=== PATIENT | female | born 1955 | race Caucasian/White ===

== ENCOUNTER → 2017-06-13 | Day surgery (SDC) | payer OTHER ==
[~2017-06-13] MED LIST: LIDOCAINE 2% INJ (20 MG/ML) 20 ML MDV ONE
--- NOTE | 2017-06-14 12:47 | OPERATIVE REPORT E ---
Operative Report NAME: TOMY BAH : 1955 AGE: 61Y DATE OF SURGERY: 06/13/2017 ROOM: PREOPERATIVE DIAGNOSIS: ASYMMETRIC NODULAR DENSITY 10 O'CLOCK POSITION, RIGHT BREAST. POSTOPERATIVE DIAGNOSIS: ASYMMETRIC NODULAR DENSITY 10 O'CLOCK POSITION, RIGHT BREAST. PROCEDURES: 1. Stereotactically-directed incision mammotomy, right breast. 2. Interpretation of intraoperative mammography. 3. Placement of clip marker, right breast; 10 o'clock position. SURGEON: JASSI MAST M.D. ANESTHESIA: Local anesthetic. COMPLICATIONS: None. ESTIMATED BLOOD LOSS: Scant. DRAINS: None. TISSUE REMOVED: Multiple cores, right breast. COMPLICATIONS: None. FINDINGS: See below. SUMMARY OF PROCEDURE: Patient brought from the holding area to the mammography suite where the patient was placed in the prone position, right breast into compression. Compression of the target density in the superficial aspect at 10 o'clock position, right breast, was localized. The skin was prepped with Betadine, anesthetized with 1% lidocaine with epinephrine. Surgical plan and surgical time out were reviewed. The mammotomy is made with a #11 blade, a Mammotome advanced to the appropriate depth. Pre- and post fire films showed good alignment between the Mammotome and the target tissue. We now completed core biopsies x12 of the density. A clip marker was placed into the cavity. Post-biopsy images showed adequate evacuation of the density. There were no microcalcifications, therefore a specimen radiograph was not obtained. Mammotome was removed. Compression dressing applied. Patient tolerated the procedure well. DICTATING PHYSICIAN: JASSI MAST M.D. [id number] PHY#: [id number] ID: [id number] JOB#: [id number] ACCT: [id number] cc:JASSI MAST M.D. > MTDFlaco
--- NOTE | 2017-06-19 12:07 | RADIOLOGY REPORT (SQ) ---
EXAM DESCRIPTION: STEREO BREAST BX; RIGHT DIG DX MAMMO NO CHG COMPLETED DATE/TIME: 06/13/2017 2:12 pm; 06/13/2017 3:02 pm REASON FOR STUDY: UNSPEC BREAST LUMP (N63); POST RT BREAST STEREO N63 UNSPECIFIED LUMP IN BREAST COMPARISON: No recent films for comparison LIMITATIONS: None. PROCEDURE: Vacuum-assisted stereotactic-guided biopsy of the lesion in the right breast performed by Dr. Patel who also targeted the lesion. Using stereotactic guidance, a vacuum-assisted core biopsy of the targeted lesion was performed. A p ellet clip was deployed at the biopsy site. Post procedure image reveals the clip at the biopsy site . TECHNIQUE: Images from the stereotactic unit acquired during the procedure. Specimen radiography performed. No Post- procedure image acquired post-clip placement. Yes Post procedure 2 view mammograms performed in the mammography suite. Yes FINDINGS: SPECIMEN RADIOGRAPH:Not performed. POST PROCEDURE MAMMOGRAMS FOR MARKER PLACEMENT: Yes POST PROCEDURE MAMMOGRAM: Clip is in expected location. No significant hematoma. PATHOLOGY: Invasive well-differentiated ductal carcinoma CONCORDANT: Yes. The operating surgeon was notified of the findings. IMPRESSION: SUCCESSFUL STEREOTACTIC-GUIDED BIOPSY OF LESION IN THE RIGHT BREAST. BIOPSY RESULTS ARE CONCORDANT WITH IMAGING FINDINGS. FOLLOW-UP: PER SURGEON COMMENT: Right breast: BI-RADS 6, known malignancy. Appropriate action should be taken. TECHNICAL DOCUMENTATION: JOB ID: [id number]- All Rights Reserved
== END ==
LOC: RAD 10:25
PROVIDERS: ATTEND Surgery
PROC: 0HBT3ZX Excision of Right Breast, Percutaneous Approach, Diagnostic (ICD-10-PCS; principal; 2017-06-13)
DX: C50.911 Malignant neoplasm of unspecified site of right female breast (principal); Z17.0 Estrogen receptor positive status [ER+]; M19.90 Unspecified osteoarthritis, unspecified site; F17.210 Nicotine dependence, cigarettes, uncomplicated; Z88.5 Allergy status to narcotic agent; Z88.0 Allergy status to penicillin; Z85.850 Personal history of malignant neoplasm of thyroid; Z98.890 Other specified postprocedural states; Z79.899 Other long term (current) drug therapy; Z79.1 Long term (current) use of non-steroidal anti-inflammatories (NSAID); Z80.3 Family history of malignant neoplasm of breast
CPT/HCPCS: 88305 ×2; 88342; 19081; J3490

== ENCOUNTER 2017-07-10 08:19 | Day surgery (SDC) | payer OTHER ==
[2017-07-03 11:24] LABS: HEMATOCRIT 41.8 % (36.0-47.0); HEMOGLOBIN 13.8 g/dL (12.0-15.5); HGB HCT DIFFERENCE -0.4; MEAN CORPUSCULAR HEMOGLOBIN 30.1 pg (27.0-33.4); MEAN CORPUSCULAR HGB CONC 33.2 g/dL (32.0-36.0); MEAN CORPUSCULAR VOLUME 91 fl (80-97); RED BLOOD COUNT 4.61 10^6/uL (3.72-5.28); RED CELL DISTRIBUTION WIDTH 12.5 % (11.5-14.0); WHITE BLOOD COUNT 8.1 10^3/uL (4.0-10.5)
[2017-07-03 11:42] LABS: ANION GAP 9 (5-19); BLOOD UREA NITROGEN 15 mg/dL (7-20); CALCIUM 9.8 mg/dL (8.4-10.2); CARBON DIOXIDE 29 mmol/L (22-30); CHLORIDE 104 mmol/L (98-107); CREATININE RESULT 0.61 mg/dL (0.52-1.25); GLUCOSE 96 mg/dL (75-110); POTASSIUM 4.6 mmol/L (3.6-5.0)
[~2017-07-10 08:19] MED LIST changes: +DEXAMETHASONE SOD PHOSPHATE INJ 4 MG/1 ML VIAL ONE; +GLYCOPYRROLATE INJ 0.4 MG/2 ML VIAL ONE; +LACTATED RINGERS 1000 ML IV PRN; +LIDOCAINE 0.5% INJ-PF (5 MG/ML) 50 ML SDV SUBCUT PRN; -LIDOCAINE 2% INJ (20 MG/ML) 20 ML MDV ONE; +METOCLOPRAMIDE HCL INJ/PF 10 MG/2 ML SDV ONE; +SUCCINYLCHOLINE CHLORIDE INJ 200 MG/10 ML VIAL ONE
[2017-07-10] MEDS ORDERED: CIPROFLOXACIN 400 MG/D5W RTU 400 MG/200 ML RTUPB IV ONE (08:36)
[2017-07-10] MEDS ORDERED: LIDOCAINE 4% TRANSPARENT DRESSING 5 GM KIT TP PRN (08:43)
[2017-07-10] MEDS ORDERED: CIPROFLOXACIN 400 MG/D5W RTU 400 MG/200 ML RTUPB IV PRN (08:44)
[2017-07-10] MEDS ORDERED: LIDOCAINE 1% INJ-PF (10 MG/ML) 30 ML SDV ONE (09:09)
[2017-07-10] MEDS ORDERED: LIDOCAINE 1%/EPINEPHRINE INJ 20 ML VIAL ONE (09:41)
[2017-07-10] MEDS ORDERED: MICROFIBRILLAR COLLAGEN 1 GM PACK ONE (09:41)
[2017-07-10] MEDS ORDERED: METHYLENE BLUE 50 MG/10 ML AMPULE ONE (09:41)
[2017-07-10] MEDS ORDERED: LIDOCAINE 2% INJ-PF (20 MG/ML) 10 ML AMPUL ONE (11:33)
[2017-07-10] MEDS ORDERED: ACETAMINOPHEN 100 ML IV ONE (11:34)
[2017-07-10] MEDS ORDERED: ONDANSETRON HCL INJ/PF 4 MG/2 ML SDV ONE (11:34)
[2017-07-10] MEDS ORDERED: MIDAZOLAM 2 MG/2 ML INJ ONE (11:34)
[2017-07-10] MEDS ORDERED: PROPOFOL INJ 200 MG/20 ML VIAL IV ONE (11:34)
[2017-07-10] MEDS ORDERED: FENTANYL CITRATE INJ/PF 250 MCG/5 ML AMPULE ONE (11:34)
--- NOTE | 2017-07-10 12:09 | RADIOLOGY REPORT (SQ) ---
EXAM DESCRIPTION: NM LYMPHATICS/LYMPH GLANDS COMPLETED DATE/TIME: 07/10/2017 10:50 am REASON FOR STUDY: BREAST CA C50.919 MALIGNANT NEOPLASM OF UNSP SITE OF UNSPECIFIED FEMAL Z80.3 FAM SAMANTHA HISTORY OF MALIGNANT NEOPLASM OF BREAST COMPARISON: Right breast stereotactic biopsy 06/13/2017 RADIONUCLIDE AND DOSE: 589 microcuries TC-99mtilmanocept - [employer]. The route of agent administration: Subcutaneous in the skin. TECHNIQUE: The skin of the right breast was prepped in sterile fashion. The radiopharmaceutical was administered in equally divided doses in the periareolar breast, from the 9 o'clock to 12 o'clock po sition. LIMITATIONS: None. FINDINGS: Images demonstrate activity at the injection site, with migration of activity to the right axilla. IMPRESSION: ADMINISTRATION OF RADIOPHARMACEUTICAL FOR SENTINEL LYMPH NODE EVALUATION. TECHNICAL DOCUMENTATION: JOB ID: [id number] [email or web address]- All Rights Reserved
[2017-07-10] MEDS ORDERED: PROMETHAZINE HCL INJ 25 MG/1 ML VIAL IV PRN ×2 (12:41)
[2017-07-10] MEDS ORDERED: ONDANSETRON HCL INJ/PF 4 MG/2 ML SDV IV PRN (12:41)
[2017-07-10] MEDS ORDERED: DIPHENHYDRAMINE HCL 50 MG/ML VIAL IV PRN (12:41)
[2017-07-10] MEDS ORDERED: MORPHINE SULFATE 10 MG/ML INJ IV PRN (12:41)
[2017-07-10] MEDS ORDERED: FENTANYL CITRATE INJ/PF 100 MCG/2 ML AMPUL IV PRN ×3 (12:41)
--- NOTE | 2017-07-10 14:27 | PDOC DISCHARGE SUMMARY ---
Discharge Summary (SDC) - Discharge Final Diagnosis: right breast cancer Date of Surgery: 07/10/17 Discharge Date: 07/10/17 Condition: Stable Treatment or Instructions: [facility] [address], [place] [address] Care Instructions Following Your Mastectomy Activities: Resume normal activities when you feel comfortable. It is best to remain as active as possible to speed your recovery. It is common to experience some fatigue after surgery and you may find that short naps are helpful. Avoid strenuous activity such as weight lifting, tennis, etc at your surgical site for two weeks. Perform gentle arm exercises daily and do not favor your operative arm to due increased risk of mobility issues postoperatively. No driving for 7 days after surgery. Do not drive if you are taking pain medication other than Tylenol or Ibuprofen. No swimming, tub baths or soaking in a hot tub for 4 weeks. There are no dietary restrictions. Do not smoke as this impairs wound healing. Surgical Site care: You may shower 24 hours after your procedure. Leave the skin glue intact. It will peel off on its own. Do not scrub the incision. Pat the area dry with a towel. You do not need to recover the wound although some patients find that they feel more comfortable using a light dressing for a few days to absorb any minimal drainage which may occur. You may apply deodorant if you are careful to avoid getting it on the wound itself. Medications: Take Motrin (ibuprofen) 600 mg to 800 mg every 8 hours around the clock. You may taper this medication as you experience less pain. Take narcotic pain control such as Tylenol #3 or Percocet one to tablets every six hours as needed for breakthrough pain. Do not take over the counter Tylenol if you are taking either Tylenol #3 or Percocet. Again, you cannot drive while taking narcotic pain medication. Resume all of your normal prescription medications after your surgery unless instructed otherwise. You may experience constipation after surgery while taking pain medications. If using a narcotic on a regular basis, take a stool softener such as Colace twice a day. It is helpful to stay hydrated by drinking lots of fluids. Walking is also helpful and is good exercise after surgery. If you need extra help, use Milk of Magnesia according to the directions on the package. Follow-up: Call our office at to make a follow-up appointment in 10-14 days. Your doctor will call to discuss the pathology report with you as soon as it is available. Concerns: If you had a sentinel lymph node biopsy with your mastectomy, your urine may have a greenish discoloration. This is normal and will resolve as the blue dye slowly leaves your system. If you notice significant leakage around the drains , this is not normal. The drains may be clogged. Please call our office to come in immediately for the drains to be checked. Some bruising may occur and will go away over time. If you have a fever of 101.5 or greater, chills, redness at the incision site, excessive drainage from your wound or severe pain not relieved by pain medication, call your doctor. A physician is available 24 hours a day 7 days a week in addition to regular office hours. If problems arise after normal office hours please call the hospital at . Please call if you have any questions or concerns. Prescriptions: Ketorolac Tromethamine [Toradol 10 mg Tablet] 10 mg PO Q6HP PRN #25 tablet PRN Reason: Referrals: MANDI ANGEL MD [Primary Care Provider] - Discharge Diet: As Tolerated Discharge Activity: Activity As Tolerated Report the Following to Your Physician Immediately: Increase in Pain, Fever over 101 Degrees, Unusual Bleeding, Swelling, Warmth
--- NOTE | 2017-07-10 14:33 | Operative Report ---
Operative Report DATE OF SURGERY: 07/10/17 PREOPERATIVE DIAGNOSIS: Invasive right breast carcinoma status post stereotactic biopsy POSTOPERATIVE DIAGNOSIS: Same OPERATION: 1. [place] lymph node biopsy 4 right axilla using dual mapping technique. 2. Needle localized right open breast lumpectomy SURGEON: JASSI SPEARS MATHEMATICS LECTURER: EBENEZER NANCE ANESTHESIA: GA TISSUE REMOVED OR ALTERED: [place] lymph nodes 4; right breast lumpectomy specimen with needle and wire and clip COMPLICATIONS: None ESTIMATED BLOOD LOSS: Minimal INTRAOPERATIVE FINDINGS: See below PROCEDURE: The patient was seen in the ambulatory surgery area after she went needle localized sensation of her right breast clip at the site of previous stereotactic biopsy. The patient also went lymphoscintigraphy of the right breast and axilla using lymphocytic technetium 99. There was areas of increased activity in the right axilla consistent with cysts successful sentinel node mapping. Right breast was marked. The patient was taken to the operating room where general anesthesia was induced. The wire and needle coming out of the right breast was clipped at the skin level. We now proceeded with blue dye injection into the right breast, intradermal location, 10 o'clock position. Approximately 2 cc of 50% dilute methylene blue was injected successfully as a single wheel in the dermis. The right breast was massaged for approximately 5 minutes. The right breast chest wall and axilla were then prepped and draped in sterile fashion. Surgical plan surgical timeout was conducted. The first portion of the operation consisted of the sentinel lymph node biopsy involving the right axilla. An area of increased activity in the right axilla, low anterior medial side was identified. Skin was anesthetized 1% plain lidocaine. Approximately 3 cm incision was made with the knife, and using a combination of blunt, electrocautery, and tonsil dissection, we proceeded with sentinel lymph node harvest. The first sentinel lymph node identified was blue hot moderate size, in vivo count of 44,854. It was removed with electrocautery , and ex vivo count was 19,075. A sentinel lymph node harvest in the same location but slightly more peripheral had an in vivo count of 2062 and an ex vivo count of 5687. A third sentinel lymph node identified was not blue but hot at 7818 which was the ex vivo count and a fourth sentinel lymph node was not blue but hot had an ex vivo count of 3357. Last 2 lymph nodes were harvested closer to the chest wall. There were scattered lymphatics which were blue and had some activity. These were not submitted to pathology for analysis. Her background counts were low and given the harvest, we felt that the sentinel node biopsying was complete. A small sponge was placed in the axilla we turned our attention to the right breast The right breast had a needle and wire localized to the clip by Dr. Meraz. We need to times the breast with 1% plain lidocaine, and maybe marking on the skin for anticipated lumpectomy in the upper outer quadrant of the right breast. The incision was made with the #10 blade above and below the needle and wire. We now harvested a intricately oriented lumpectomy specimen using electrocautery, and are needle and wire trajectory as a rough guide. The lumpectomy specimen was taken down to the level of the deep lateral breast parenchyma. The posterior and of the assessment free of wire. Once the lumpectomy specimen was removed it was marked with a long suture in the lateral position, the needle and wire coming out from the anterior lateral position, and a small suture placed in the superior position. We did image it with fluoroscopy in the operating room the specimen containing the needle, wire and clip specimen was subsequently imaged by Dr. Meraz and found to have the above landmarks. I walked with the specimen to pathology and reviewed with Dr. rose into the specimen, and cross-sectioned it and found the cavity to be adjacent to the needle very apical position in relation to the lumpectomy specimen. She did feel that we had gotten circumferentially around the specimen and her deep margin was clear. The only concern was the apical margin. Given the fact that the apex of the specimen was where the needle went right through it, and this was at the skin level, there was really no further tissue to submit as this correlated with the open incision. Hemostasis was achieved with electrocautery. Packing removed from the right axillary wound. Avitene was placed in the recesses of the lumpectomy wound and the operative incisions closed with 3-0 Vicryl Dermabond glue. Patient tolerated the procedure well, extubated taken to recovery room in stable condition. The physician assistant foreman, Ms. Malagon, provided assistance during this case by: Assisting with retracting tissue, instillation of local anesthesia and closure of skin incisions.
[2017-07-10] MEDS ORDERED: EPHEDRINE SULFATE INJ 50 MG/1 ML AMPULE ONE (14:44)
[2017-07-10 16:35] VITALS: BP 137/72
--- NOTE | 2017-07-15 18:32 | WOMENS IMAGING REPORT ---
EXAM DESCRIPTION: BREAST SPECIMEN COMPLETED DATE/TIME: 07/10/2017 2:02 pm REASON FOR STUDY: POST OP C50.919 MALIGNANT NEOPLASM OF UNSP SITE OF UNSPECIFIED FEMAL Z80.3 FAMIL Y HISTORY OF MALIGNANT NEOPLASM OF BREAST COMPARISON: Needle localization 07/10/2017 TECHNIQUE: Specimen radiograph from breast procedure performed in the operating room. LIMITATIONS: None. FINDINGS: Specimen radiograph demonstrates the stereotactic clip and worrisome right breast nodule c ontained within the specimen. Pathology yielded a diagnosis of invasive ductal carcinoma IMPRESSION: Specimen radiograph. TECHNICAL DOCUMENTATION: JOB ID: [id number]
--- NOTE | 2017-07-15 18:33 | WOMENS IMAGING REPORT ---
EXAM DESCRIPTION: WIRE LOC MAMMO COMPLETED DATE/TIME: 07/10/2017 11:34 am REASON FOR STUDY: CANCER R BREAST C50.919 MALIGNANT NEOPLASM OF UNSP SITE OF UNSPECIFIED FEMAL Z80. 3 FAMILY HISTORY OF MALIGNANT NEOPLASM OF BREAST COMPARISON: None. TECHNIQUE: The stereotactic clip in the right breast was localized mammographically using a grid ma rker. The skin of the breast was prepped in sterile fashion and local anesthesia was provided. The localization needle was advanced to the target. The tip was positioned adjacent to the target and co nfirmed with two orthogonal views. Surgical dye was not injected for this procedure. The wire was pl aced through the needle and the hook engaged. Post procedure mammogram demonstrates satisfactory posi tion of the needle and wire. Specimen radiograph demonstrates the intact localization wire as well as the targeted lesion within t he biopsy specimen. LIMITATIONS: None. FINDINGS: Procedure as above. Pathology: Invasive ductal carcinoma IMPRESSION: SUCCESSFUL NEEDLE LOCALIZATION OF THE LESION IN THE RIGHT BREAST. FOLLOW-UP PER THE PATIENT'S SURGEON. TECHNICAL DOCUMENTATION: JOB ID: [id number] [employer]- All Rights Reserved
== END 2017-07-10 16:45 | disposition home or self-care (01) ==
LOC: OROUT 08:19
PROVIDERS: ATTEND Surgery
PROC: 0HBT0ZZ Excision of Right Breast, Open Approach (ICD-10-PCS; principal; 2017-07-10 12:00)
DX: C50.919 Malignant neoplasm of unspecified site of unspecified female breast (principal); Z80.3 Family history of malignant neoplasm of breast; M19.90 Unspecified osteoarthritis, unspecified site; E89.0 Postprocedural hypothyroidism; Z96.643 Presence of artificial hip joint, bilateral; K21.9 Gastro-esophageal reflux disease without esophagitis; Z79.1 Long term (current) use of non-steroidal anti-inflammatories (NSAID); Z79.899 Other long term (current) drug therapy; Z85.850 Personal history of malignant neoplasm of thyroid; Z88.5 Allergy status to narcotic agent
CPT/HCPCS: 36415; 85027; 80048; 88342 ×2; 88307 ×2; 78195; 19281; 76098; 19301; 38500; A9520; J2250; J1100; J3490 ×6; J3010; J2765; J0330; J2405; J2704; J0744; J0131; Q9968; 1610